=== PATIENT | male | born 1950 | race Caucasian/White ===

== ENCOUNTER 2020-04-03 11:12 | Day surgery (SDC) | payer MEDICARE, BC ==
[~2020-04-03] VITALS: Ht 180.3 cm; Wt 106.1 kg
[~2020-04-03 11:12] MED LIST: LISI-170 PO
[2020-04-03 11:59] VITALS: BP 116/76
[2020-04-03] MEDS ORDERED: LISI-420 PO (11:59)
[2020-04-03] MEDS ORDERED: OMEP20TA62 PO (11:59)
[2020-04-03] MEDS ORDERED: ALLO100T30 PO (11:59)
[2020-04-03] MEDS ORDERED: CHLORHEXIDINE 15 ML UDC MM ONE (12:00)
[2020-04-03] MEDS ORDERED: LACTATED RINGERS 1,000 ML IV SCH (12:00)
[2020-04-03] MEDS ORDERED: CHLORHEXIDINE 15 ML UDC ONE (12:09)
[2020-04-03] MEDS ORDERED: ROPIvacaine/PF 0.5%, 30 ML ONE (12:35)
[2020-04-03] MEDS ORDERED: MIDAZOLAM 1 MG/ML, 2ML ONE (12:46)
[2020-04-03] MEDS ORDERED: FENTANYL PF 250 MCG/5ML ONE (12:46)
[2020-04-03 13:00] LABS: ALANINE AMINOTRANSFERASE 18 U/L (12-78); ANION GAP 8 mmol/L (5-15); CALCIUM 9.3 mg/dL (8.5-10.1); CHLORIDE 107 mmol/L (98-107); CREATININE 1.12 mg/dL (0.7-1.3)
[2020-04-03 13:02] LABS: ALKALINE PHOSPHATASE 101 U/L (45-117); TOTAL PROTEIN 7.4 g/dL (6.4-8.2)
[2020-04-03] MEDS ORDERED: ONDANSETRON 2MG/ML, 2ML ONE (13:19)
[2020-04-03] MEDS ORDERED: CEFAZOLIN 1,000 MG ONE (13:19)
[2020-04-03] MEDS ORDERED: BUPIVACAINE/PF 0.5% ONE (13:37)
[2020-04-03] MEDS ORDERED: SUCCINYLCHOLINE 20 MG/ML, 10ML ONE (13:42)
[2020-04-03] MEDS ORDERED: PROPOFOL 10 MG/ML, 20ML ONE (13:42)
[2020-04-03] MEDS ORDERED: OXYcodone 5 MG/5 ML ORAL.SOL UDC PO PRN (14:00)
[2020-04-03] MEDS ORDERED: PROMETHAZINE 25 MG/ML, 1ML IVPush PRN (14:00)
[2020-04-03] MEDS ORDERED: PROMETHAZINE 12.5 MG SUPP PR PRN (14:00)
[2020-04-03] MEDS ORDERED: ALBUTEROL SULFATE 2.5 MG/3 ML NPPB PRN (14:00)
[2020-04-03] MEDS ORDERED: ACETAMINOPHEN 325 MG TABLET PO PRN (14:00)
[2020-04-03] MEDS ORDERED: EPHEDRINE 50 MG/ML, 1ML IVPush PRN (14:00)
[2020-04-03] MEDS ORDERED: DIPHENHYDRAMINE 50 MG/ML, 1ML IVPush PRN (14:00)
[2020-04-03] MEDS ORDERED: ONDANSETRON 2MG/ML, 2ML IVPush PRN (14:00)
[2020-04-03] MEDS ORDERED: LABETALOL 5MG/ML, 20ML IV PRN (14:00)
[2020-04-03] MEDS ORDERED: MIDAZOLAM 1 MG/ML, 2ML IV PRN (14:00)
[2020-04-03] MEDS ORDERED: MEPERIDINE/PF 25MG/0.5ML IVPush PRN (14:00)
[2020-04-03] MEDS ORDERED: hydrALAzine 20 MG/ML, 1ML IV PRN (14:00)
[2020-04-03] MEDS ORDERED: OXYcodone 5 MG/5 ML ORAL.SOL UDC ONE (14:35)
[2020-04-03] MEDS ORDERED: FENTANYL PF 100 MCG/2ML ONE (14:35)
[2020-04-03] MEDS ORDERED: HYDROmorphone 1 MG/ML, 1ML INJ ONE ×2 (14:35→15:19)
[2020-04-03] MEDS: FENTANYL PF 100 MCG/2ML IV PRN ×2 (14:36→14:41)
[2020-04-03] MEDS: HYDROmorphone 1 MG/ML, 1ML INJ IVPush PRN ×4 (14:47→15:27)
[2020-04-03] MEDS ORDERED: DIAZEPAM 5 MG/ML, 2ML ONE ×2 (14:49→14:52)
[2020-04-03] MEDS: DIAZEPAM 5 MG/ML, 2ML IVPush PRN ×2 (14:54→15:04)
== END 2020-04-03 16:45 | disposition home or self-care (01) ==
LOC: OUT 11:12
PROVIDERS: ATTEND Orthopaedic Surgery
DX: S76.112A Strain of left quadriceps muscle, fascia and tendon, initial encounter (principal); I10 Essential (primary) hypertension; M10.9 Gout, unspecified; K21.9 Gastro-esophageal reflux disease without esophagitis; G89.18 Other acute postprocedural pain; Z79.891 Long term (current) use of opiate analgesic; Z79.899 Other long term (current) drug therapy; Z87.891 Personal history of nicotine dependence; Z82.49 Family history of ischemic heart disease and other diseases of the circulatory system; W01.0XXA Fall on same level from slipping, tripping and stumbling without subsequent striking against object, initial encounter; Y93.89 Activity, other specified; Y92.89 Other specified places as the place of occurrence of the external cause; Y99.8 Other external cause status
CPT/HCPCS: 27385; 36415; 64447; 80053; 87635; 93005; C1713; J0330; J0690; J1170; J2250; J2405; J2704; J2795; J3010; J3360; J7120

== ENCOUNTER 2020-05-01 11:52 | Emergency (ER) | payer MEDICARE, BC ==
[~2020-05-01] VITALS: Ht 182.9 cm; Wt 105.6 kg
[~2020-05-01 11:52] MED LIST changes: +ALLO100T30 PO; +LISI-420 PO; +OMEP20TA62 PO
[2020-05-01 12:33] LABS: BASOPHILS % (AUTO) 1 % (0-1); EOSINOPHILS % (AUTO) 0 % (1-7); LYMPHOCYTES % (AUTO) 7 % (22-44); MEAN CORPUSCULAR HEMOGLOBIN 29.8 pg (27.5-34.5); MEAN CORPUSCULAR HGB CONC 33.4 g/dL (33.2-36.2); MONOCYTES % (AUTO) 6 % (2-9); NEUTROPHILS % (AUTO) 87 % (42-75); PLATELET COUNT 168 x10^3/uL (130-400); RED BLOOD COUNT 5.52 x10^6/uL (4.38-5.82); RED CELL DISTRIBUTION WIDTH 14.2 % (9.4-14.8)
[2020-05-01 12:35] LABS: MD NO
[2020-05-01 12:42] LABS: ALBUMIN 3.9 g/dL (3.4-5.0); ANION GAP 6 mmol/L (5-15); CALCIUM 9.6 mg/dL (8.5-10.1); CHLORIDE 106 mmol/L (98-107)
[2020-05-01 12:46] LABS: ALANINE AMINOTRANSFERASE 17 U/L (12-78); ALKALINE PHOSPHATASE 114 U/L (45-117); BILIRUBIN,TOTAL 1.7 mg/dL (0.2-1.0); CREATININE 1.18 mg/dL (0.7-1.3); TOTAL PROTEIN 7.9 g/dL (6.4-8.2)
[2020-05-01 13:02] LABS: INTERNATIONAL NORMALIZED RATIO 1.08 (0.93-1.1); PROTHROMBIN TIME 11.4 Seconds (9.6-11.5)
[2020-05-01 14:39] VITALS: BP 176/94
== END 2020-05-01 14:43 | disposition home or self-care (01) ==
LOC: ED 14:15
DX: I82.412 Acute embolism and thrombosis of left femoral vein (principal); I82.432 Acute embolism and thrombosis of left popliteal vein; I82.442 Acute embolism and thrombosis of left tibial vein; R94.31 Abnormal electrocardiogram [ECG] [EKG]
CPT/HCPCS: 36415; 80053; 85025; 85610; 93005; 99284